=== PATIENT | male | born 1950 | race Caucasian/White ===

== ENCOUNTER 2023-06-25 10:04 | Outpatient (AMB) | payer MEDICARE, MEDICAID, SELFPAY ==
--- NOTE | 2023-06-25 10:07 | MHC.PC.OV ---
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 He resides at [facility]. He presents today with complaints of not wanting to eat, not wanting to speak, and active SI. Is been reported that the patient has been isolative to his room, increased incidence of urinary incontinence, and unwilling to shower or bathe. He has a past medical history significant for bipolar disorder, depression, hypothyroidism, weight loss, and coronary artery disease. It is reported the patient is taking his medications at the facility. Patient is declining labs or urine sample. He is reluctant to engage in the physical exam. He does state that he has active suicidal ideation, he states does not want to live anymore. After lengthy discussion with the in office mental health liaison the patient has agreed to transfer to the local hospital for more in-depth workup. [facility] Social History Housing: Other Patient Tobacco Use Status: Never used Tobacco e-Cigarette/Vaping Use: Never Used Current occupational status: disabled Cognitive needs: No Hearing needs: No Vision needs: No Questionnaire PHQ-9 Over the last 2 weeks, how often have you been bothered by any of the following problems? 1. Little interest or pleasure in doing things: not at all 2. Feeling down, depressed, or hopeless: not at all 3. Trouble falling or staying asleep, or sleeping too much: more than half the days 4. Feeling tired or having little energy: several days 5. Poor appetite or overeating: more than half the days 6. Feeling bad about yourself - or that you are a failure or have let yourself or your family down: not at all 7. Trouble concentrating on things, such as reading the newspaper or watching television: not at all 8. Moving or speaking so slowly that other people could have noticed. Or the opposite - being so fidgety or restless that you have been moving around a lot more than usual: not at all 9. Thoughts that you would be better off or of hurting yourself in some way: not at all Total score: 5 Source: Developed by Drs. John Quijano, Kathy Floyd, Vic Thurston and colleagues, with an educational anni from [employer]. Thrive Questionnaire Date Thrive assessed: 06/25/23 I am a: Parent/Caregiver What is your living situation today?: I have a steady place to live Within the past 12 months, did the food you bought not last and you didn't have the money to get more?: Never true Within the past 12 months, did you worry whether your food would run out before you got money to buy more?: Never true Do you have trouble paying for medicines?: No Do you have trouble getting transportation to medical appointments?: No Do you have trouble paying your heating and electricity bill?: No Do you have trouble taking care of your child, family member or friend?: No Do you have trouble with day-to-day activities such as bathing, preparing meals, shopping, managing finances, etc.?: No Are you currently unemployed and looking for a job?: No Are you interested in more education?: No AUDIT C Alcohol Use Questionnaire (AUDIT-C) 1. How often do you have a drink containing alcohol?: Never Total Score: 0 ALLISON-7 AMB Questionnaire ALLISON-7 Date ALLISON - 7 assessed: 06/25/23 Feeling nervous, anxious, or on edge: 1 = Several days Not being able to stop or control worryin = Not at all Worrying too much about different things: 0 = Not at all Trouble relaxin = More than half the days Being so restless that it is hard to sit still: 2 = More than half the days Becoming easily annoyed or irritable: 2 = More than half the days Feeling afraid as if something awful might happen: 1 = Several days Total ALLISON-7 score (0-4 normal; 5-9 mild; 10-14 moderate; 15-21 severe): 8 Source: Developed by DrsMay Quijano, Kathy Floyd, Vic Thurston and colleagues, with an educational anni from [employer]. Review of Systems Const Details: Patient is reluctant to answer questions. He states that he does not want to live anymore, he does want to eat anymore, and that he does not want to live anymore. Physical exam (Primary Care) Vital Signs: Last Vital Signs Pulse 73 06/25/23 10:10 BP 100/60 06/25/23 10:10 Pulse Ox 100 06/25/23 10:10 Oxygen Delivery Method Room Air 06/25/23 10:10 BMI result Body Mass Index 16.4 Tobacco/Smoking Status: Tobacco use Status Tobacco use date assessed 06/25/23 06/25/23 10:21 Patient Tobacco Use Status Never used Tobacco 06/25/23 10:21 e-Cigarette/Vaping Use Never Used 06/25/23 10:21 Const Other: Patient is declined physical exam. Assessment and Plan Assessment & Plan (1) Failure to thrive in adult: Comment: Due to patient's increased isolation, increased urinary incontinence, unwillingness to provide lab, or participate physical exam, in addition to active suicidal ideation, patient will be transported to a local hospital. He is agreeable to this plan. Code(s): R62.7 - Adult failure to thrive Coding Level of Care Code New Pt Level 4 (36571) Diagnoses Failure to thrive in adult R62.7 Time Spent (min) 30
[2023-06-25 10:10] VITALS: BP 100/60; PULSE 73; O2SAT 100; BMI 16.4
== END 2023-06-25 11:35 | disposition home or self-care (01) ==
PROVIDERS: PCP Nurse Practitioner Family; Visit Provider Nurse Practitioner Primary Care
DX: R62.7 Adult failure to thrive (principal)
CPT/HCPCS: 99204

== ENCOUNTER → 2023-08-25 23:59 | Outpatient (BNV) | payer MEDICARE, MEDICAID, SELFPAY | PROVIDERS: PCP Nurse Practitioner Primary Care; Visit Provider Internal Medicine | DX: F25.1 Schizoaffective disorder, depressive type (principal); F06.1 Catatonic disorder due to known physiological condition | CPT/HCPCS: G0180 ==

== ENCOUNTER 2023-08-26 10:55 | Outpatient (AMB) | payer MEDICARE, MEDICAID, SELFPAY ==
[2023-08-26 11:11] VITALS: BP 102/60; PULSE 98; O2SAT 99; BMI 22.6
--- NOTE | 2023-08-26 11:11 | MHC.PC.OV ---
Vital Signs 08/26/23 11:11 Height 5 ft 7 in Weight 144 lb 4 oz BMI 22.6 BP 102/60 Blood Pressure Location Rt brachial Position Sitting Pulse 98 Pulse Source Pulse Oximeter Pulse Oximetry (%) 99 Oxygen Delivery Method Room Air Intake Visit Reasons: HDF [facility] Failure to thrive Allergies No Known Allergies Allergy (Verified 08/26/23 11:22) Medication List - Last Reconciled 08/26/23 by MARIMAR Strauss acetaminophen 325 mg PO QID PRN alum-mag hydroxide-simeth 200-200-20 mg/5 mL (Antacid) 10 mL PO QID PRN ammonium lactate 12% 1 appl topical BID ascorbic acid (vitamin C) 250 mg PO DAILY benztropine 0.5 mg PO BID bisacodyl 10 mg MS DAILY PRN carbamazepine 100 mg PO TID cyanocobalamin (vitamin B-12) (Vitamin B-12) 100 mcg PO DAILY ferrous sulfate 325 mg PO DAILY folic acid 1 mg PO DAILY gabapentin 100 mg PO BID levothyroxine 25 mcg PO DAILY lorazepam 0.5 mg PO BID PRN magnesium hydroxide ([place] Milk of Magnesia) 400 mg PO DAILY PRN multivitamin 1 tab PO DAILY mupirocin 2% 1 appl topical BID paroxetine HCl 20 mg PO DAILY risperidone 1 mg PO BID sennosides-docusate sodium 8.6-50 mg (Senna Plus) 1 tab-cap PO BEDTIME simethicone 80 mg PO BID-QID PRN thiamine HCl (vitamin B1) 100 mg PO DAILY trazodone 50 mg PO BEDTIME PRN white petrolatum 51.1% (Balmex (petrolatum)) 1 appl topical BID Tobacco use date assessed: 08/26/23 Fall risk assessment: No Falls in past year Last assessed Fall Risk: 08/26/23 Dental Screening Dental Screen Date: 08/26/23 Did you have a dental visit in the last 12 months?: No Did you have a dental problem in the last 6 months where you did not have access to dental care?: No Was dental information given to patient?: No HPI HPI Comments History of Present Illness Details Patient is a 73-year-old male in today for a follow-up from hospital discharge. He was seen at [facility] 3 weeks ago for suicidal ideation and failure to thrive. He was stabilized, given medication adjustment, and sent back to his living facility at [facility] with VNA. He has a past medical history significant for dyslipidemia, hypothyroidism, BPH, urinary incontinence, restless legs syndrome, tremor, schizoaffective disorder, depression, and sialorrhea. While at [facility] the patient had is Seroquel discontinued, was given lorazepam 0.5 p.r.n. carbamazepine increased to 300mg PO daily, and added cogentin 0.5 PO BID. Patient states that he does not have any suicidal ideation. He feels much better now than before he went to the hospital, he feels like the new medication adjustments have been working well. He has a primary concern thickened yellow nails on his feet bilaterally. Denies using any medication. Denies any pain or trauma to the area. Patient states he has history of fungal infection of his nail bed in the past. Patient states he is up-to-date on his immunizations. Will try to obtain records on previous colonoscopy. Will collect blood work today [facility] Medical History (Updated 08/26/23 @ 12:13 by MARIMAR Strauss) Dyslipidemia Schizoaffective disorder Hypothyroidism BPH (benign prostatic hyperplasia) Restless leg syndrome Tremor Bipolar disorder Social History Housing: Other Housing Other:: [facility]. Patient Tobacco Use Status: Never used Tobacco e-Cigarette/Vaping Use: Never Used Current occupational status: disabled Cognitive needs: No Hearing needs: No Vision needs: No Questionnaire Thrive Questionnaire Date Thrive assessed: 06/25/23 ALLISON-7 AMB Questionnaire ALLISON-7 Date ALLISON - 7 assessed: 06/25/23 Source: Developed by Drs. John Quijano, Kathy Floyd, Vic Thurston and colleagues, with an educational anni from [employer]. Review of Systems Const Details: Constitutional : No Weight loss, No Fever, No Chills, No Fatigue, No Malaise ENT/Mouth : No sore throat, No Rhinorrhea Eyes: No Eye Pain, No Swelling, No Redness Cardiovascular : No Chest Pain, No SOB, No Dyspnea on Exertion, No Orthopnea, No Edema, No Palpitations Respiratory : No Cough, No Sputum, No Wheezing Gastrointestinal : No Nausea, No Vomiting, No Diarrhea, No Constipation, No abdominal Pain, No Hematochezia, No Melena Genitourinary : No Dysuria, No Urinary Frequency, No Hematuria, Musculoskeletal : No joint pain, No Myalgias, No Joint Swelling Skin : Admits thick yellow toenails. Neuro : No Weakness, No Numbness, No Dizziness, No Headache Psych : No Anxiety/Panic, No Depression. Denies SI/HI. Heme/Lymph: No Bruising, No Bleeding,No Lymphadenopathy Endocrine : No Polyuria, No Polydipsia All other systems reviewed and are negative Physical exam (Primary Care) Care Plan Goal for BP management: Vital signs have been reviewed and are stable. Tobacco/Smoking Status: Tobacco use Status Tobacco use date assessed 06/25/23 06/25/23 10:21 Patient Tobacco Use Status Never used Tobacco 06/25/23 10:21 e-Cigarette/Vaping Use Never Used 06/25/23 10:21 Thrive Assessment: Date of Thrive Assessment Date Thrive assessed 06/25/23 06/25/23 11:27 Const Other: Appearance: Alert.? Oriented X3.? No acute distress.? Neck: Normal inspection.? Neck supple.? CVS: Normal heart rate and rhythm.? Pulses normal.? Respiratory: No respiratory distress.? Breath sounds normal.? Skin: Skin warm and dry.? Toenails yellow and thickened on all toes of bilateral feet. Neuro: Oriented X 3.? No motor deficit.? No sensory deficit. CN 2-12 intact Assessment and Plan Assessment & Plan (1) Onychomycosis: Comment: Will refer to podiatry. Code(s): B35.1 - Tinea unguium Plan: Patient will follow-up physical in 5 months. Patient will get blood draw after this appointment. Plan Take your medications as prescribed. If you were prescribed antibiotics today, it is important that you take your medication to their entirety, do not skip any doses, do not finish them early. Follow-up with your primary care provider this week. Return to the emergency department with new or worsening symptoms. Such as fevers, chills, chest pain, shortness of breath, nausea, vomiting, dizziness, headache, vision changes, lethargy In case of emergency call 911 Orders: Orders PSA,Total (Free>4and<10) Today Z12.5 - Encounter for screening for malignant neoplasm of prostate UA CC w/rflx Micro + Cult Today E86.0 - Dehydration Comprehensive Met. Panel Today Z91.89 - Other specified personal risk factors, not elsewhere classified Complete Blood Count Auto Diff Today Z13.0 - Encounter for screening for diseases of the blood and blood-forming organs and certain disorders involving the immune mechanism TSH reflex Free T4 Today Z13.29 - Encounter for screening for other suspected endocrine disorder Vitamin D 25-OH (D2 and D3) Today Z13.21 - Encounter for screening for nutritional disorder Coding Level of Care Code Est Pt Level 3 (80614) Diagnoses Onychomycosis B35.1 Time Spent (min) 45
== END 2023-08-26 15:41 | disposition home or self-care (01) ==
PROVIDERS: PCP Nurse Practitioner Primary Care; Visit Provider Nurse Practitioner Primary Care
DX: B35.1 Tinea unguium (principal)
CPT/HCPCS: 99213

== ENCOUNTER 2023-08-26 11:47 | Outpatient (REF) | payer MEDICARE, MEDICAID, SELFPAY ==
[2023-08-26 13:12] LABS: MANUAL DIFF FLAG NO
[2023-08-26 13:24] LABS: Basophils Percent Auto 0.5 % (0-2); Eosinophils Absolute Auto 0.4 X10*3/uL (0.0-0.4); Hematocrit 42.1 % (42.0-52.0); Hemoglobin 13.3 g/dl (14.0-18.0); Imm Gran Abs Auto 0.04 X10*3/uL (0.00-0.03); Imm Gran Pct Auto 0.5 % (0.0-0.4); Lymphocytes Absolute Auto 1.6 X10*3/uL (1.2-4.9); Lymphocytes Percent Auto 18.9 % (20-40); Mean Corpuscular HGB Conc 31.6 g/dl (31.0-36.0); Mean Corpuscular Hemoglobin 31.1 pg (27.0-33.0); Mean Corpuscular Volume 98.6 fL (80.0-98.0); Mean Platelet Volume 10.2 fL (9.4-12.4); Monocytes Absolute Auto 0.5 X10*3/uL (0.1-1.2); Monocytes Percent Auto 5.9 % (2-11); Neutrophils Percent Auto 69.2 % (45-73); Platelet Count 343 X10*3/uL (160-400); Red Blood Count 4.27 X10*6/uL (4.60-5.80); Red Cell Distribution Width 13.4 % (11.0-16.0); White Blood Count 8.7 X10*3/uL (4.8-10.8)
[2023-08-26 13:39] LABS: Appearance Urine Clear; Color Urine Dark Yellow; Glucose Urine UA Negative (Negative); Leukocyte Esterase Urine Negative (Negative); Nitrite Urine Negative (Negative); PH 5.5 (5.0-9.0); Specific Gravity - Urine 1.025 (1.005-1.025); UMIC TRIGGER UACC YES; Urine Blood Negative (Negative); Urine Ketones Trace mg/dL (Negative); Urine Protein 30 (1+) mg/dL (Neg-Trace)
[2023-08-26 13:55] LABS: PSA,Total (Free>4and<10) 4.84 ng/mL (0.00-4.00)
[2023-08-26 14:00] LABS: Alanine Aminotransferase 10 U/L (0-40); Albumin Level 3.9 g/dL (3.5-5.0); Alkaline Phosphatase 85 U/L (39-117); Anion Gap 10 (12-20); Aspartate Amino Transferase 12 U/L (5-37); Bilirubin Total 0.2 mg/dL (0.0-1.0); Blood Urea Nitrogen 17 mg/dL (9-16); Calcium 9.7 mg/dL (8.4-10.2); Carbon Dioxide 30 mmol/L (22-29); Chloride 104 mmol/L (96-108); Estimated Glomerular Filt Rate > 60; Glucose Random 94 mg/dL (60-115); Potassium 3.9 mmol/L (3.3-5.1); Sodium 140 mmol/L (135-145); TSH reflex Free T4 1.93 uIU/mL (0.32-4.0); Total Protein 7.1 g/dL (6.5-8.0)
[2023-08-26 14:07] LABS: Bacteria Urine None Seen (None Seen); Hyaline Casts Urine 0-2 /LPF (0-2); RBC Urine 0-2 /HPF (0-2); Squamous Epithelial Cell Urine 0-2 /HPF (0-2); WBC Urine 0-5 /HPF (0-5)
[2023-08-27 12:43] LABS: Free Prostate Spec Ag 0.9 ng/mL; Percent Free Prostate Spec Ag 20 % (calc) (>25); Prostate Specific Ag Total 4.5 ng/mL (< OR = 4.0)
[2023-08-30 17:23] LABS: Vitamin D 25-OH, D2 <4 ng/mL; Vitamin D 25-OH, D3 31 ng/mL; Vitamin D 25-OH, Total 31 ng/mL (30-100)
== END 2023-08-26 11:48 | disposition home or self-care (01) ==
LOC: HO.HMGCLDS 11:47
PROVIDERS: PCP Nurse Practitioner Primary Care; Visit Provider Nurse Practitioner Primary Care
DX: Z13.0 Encounter for screening for diseases of the blood and blood-forming organs and certain disorders involving the immune mechanism (principal); Z13.21 Encounter for screening for nutritional disorder; Z12.5 Encounter for screening for malignant neoplasm of prostate; Z91.89 Other specified personal risk factors, not elsewhere classified; Z13.29 Encounter for screening for other suspected endocrine disorder
CPT/HCPCS: 36415; 80053; 81001; 82306; 84153; 84154; 84443; 85025

== ENCOUNTER 2023-10-15 09:51 | Outpatient (AMB) | payer MEDICARE, MEDICAID, SELFPAY ==
--- NOTE | 2023-10-15 10:32 | A.OFFVIS_ITS ---
Intake Intake Visit Reasons: Elevated prostate specific antigen [PSA] Intake Note: NEW Patient presents today to established treatment for Elevated PSA: Meds- None Allergies to Antibiotic- No Known Allergies Blood Thinner- None PVR- 37 mL Licensed Loan Officer Assistant Required: No Accompanied by: Self / Same As Patient Allergies No Known Allergies Allergy (Verified 10/15/23 10:34) Medication List - Last Reconciled 10/15/23 by Lindsey Mallory MD acetaminophen 325 mg PO QID PRN alum-mag hydroxide-simeth 200-200-20 mg/5 mL (Antacid) 10 mL PO QID PRN ammonium lactate 12% 1 appl topical BID ascorbic acid (vitamin C) 250 mg PO DAILY benztropine 0.5 mg PO BID bisacodyl 10 mg [place] DAILY PRN carbamazepine 100 mg PO TID cyanocobalamin (vitamin B-12) (Vitamin B-12) 100 mcg PO DAILY ferrous sulfate 325 mg PO DAILY finasteride (Proscar) 5 mg PO DAILY 90 days folic acid 1 mg PO DAILY gabapentin 100 mg PO BID levothyroxine 25 mcg PO DAILY levothyroxine 25 mcg PO DAILY lorazepam 0.5 mg PO BID PRN magnesium hydroxide ([place] Milk of Magnesia) 400 mg PO DAILY PRN multivitamin 1 tab PO DAILY mupirocin 2% 1 appl topical BID paroxetine HCl 20 mg PO DAILY risperidone 1 mg PO BID sennosides-docusate sodium 8.6-50 mg (Senna Plus) 1 tab-cap PO BEDTIME simethicone 80 mg PO BID-QID PRN tamsulosin (Flomax) 0.4 mg PO BEDTIME thiamine HCl (vitamin B1) 100 mg PO DAILY trazodone 50 mg PO BEDTIME PRN white petrolatum 51.1% (Balmex (petrolatum)) 1 appl topical BID HPI HPI Comments History of Present Illness Details Christiano is a 73-year-old male with history of schizophrenia disorder, bipolar disorder, history of failure to thrive history of suicide ideation-he was admitted to [facility] in July of this year 2023 for suicide ideation. History of BPH referred for evaluation due to elevated PSA. PSA - 08/26/23--4.84 Examination-prostate is smooth enlarged. Urinalysis negative leukocytes negative blood, the patient voided 200 mL bladder scan PVR 37 mL Plan Proscar 5 mg daily, tamsulosin 0.4 mg at bedtime Repeat PSA 4 months PFS Medical History Dyslipidemia Schizoaffective disorder Hypothyroidism BPH (benign prostatic hyperplasia) Restless leg syndrome Tremor Bipolar disorder Social History Housing: Other Housing Other:: [facility]. Patient Tobacco Use Status: Never used Tobacco e-Cigarette/Vaping Use: Never Used Current occupational status: disabled Cognitive needs: No Hearing needs: No Vision needs: No Review of Systems Const All systems reviewed & are unremarkable except as noted in HPI and below Reports no additional complaints Eyes Reports no additional complaints ENT Reports no additional complaints Card Reports no additional complaints Resp Reports no additional complaints GI Reports no additional complaints Musc Reports no additional complaints Neuro Reports no additional complaints Psych Reports no additional complaints Endo Reports no additional complaints Manav/Lymph Reports no additional complaints Aller/Immun Reports no additional complaints Physical Exam Const General: no acute distress, well developed and well groomed Nutritional Appearance: thin Orientation/consciousness: patient oriented x3 HEENT Head: Yes normocephalic and Yes atraumatic Eyes Conjunctivae: conjunctivae normal Neck Neck: Yes normal visual inspection Chest Chest palpation & inspection: normal inspection of the chest Resp Effort & Inspection: normal respiratory effort Cardio Rate: regular rate GI Inspection: Yes normal to inspection Palpation (GI): Soft to palpation Other: Prostate Exam: Smooth enlarged Penis: normal penis Scrotum: scrotum normal Skin General skin exam: petechiae Rashes: rashes noted (neck and scalp) Neuro General: patient oriented x3 Extrem General: No pedal edema Psych Appearance: grossly normal Affect: normal affect Office Procedures Post Void Residual Post Residual Void Post Void Residual (PVR): 37 [id number] Void Residual by ultrasound Results AMB Urinalysis, Automated UA Leukoctes 0 Joy/uL Last Edit by CHAO Johns on 10/15/23 11:59 UA Nitrite Negative Last Edit by Tova Moreno Sirena on 10/15/23 11:59 UA Urobilinogen 0.2 mg/dL Last Edit by Tova Moreno A on 10/15/23 11:5 9 UA Protein 0 mg/dL Last Edit by Tova Moreno Sirena on 10/15/23 11:59 UA pH 6.0 Last Edit by Tova Moreno A on 10/15/23 11:59 UA Blood 0 Mike/uL Last Edit by Tova Moreno A on 10/15/23 11:59 UA Specific [place] 1.010 Last Edit by CHAO Johns on 10/15/23 11: 59 UA Ketone Negative Last Edit by Tova Moreno Sirena on 10/15/23 11:59 UA Bilirubin 0 mg/dL Last Edit by Tova Moreno Sirena on 10/15/23 11:59 UA Glucose 0 mg/dL Last Edit by Tova Moreno Sirena on 10/15/23 11:59 Results Reviewed Results Reviewed: Laboratory Last Values Urine pH (Auto) 6.0 10/15/23 11:55 Specific [place] (Auto) 1.010 10/15/23 11:55 Urine Protein (Auto) 0 mg/dL 10/15/23 11:55 Glucose (UA)(Auto) 0 mg/dL 10/15/23 11:55 Urine Ketones (Auto) Negative 10/15/23 11:55 Urine Blood (Auto) 0 Mike/uL 10/15/23 11:55 Urine Nitrite (Auto) Negative 10/15/23 11:55 Urine Bilirubin (Auto) 0 mg/dL 10/15/23 11:55 Urine Urobilinogen (Auto) 0.2 mg/dL 10/15/23 11:55 Leukocyte Esterase (Auto) 0 Joy/uL 10/15/23 11:55 Assessment & Plan Assessment & Plan (1) BPH loc w urin obs/LUTS: Code(s): N40.1 - Benign prostatic hyperplasia with lower urinary tract symptoms (2) Elevated PSA: Code(s): R97.20 - Elevated prostate specific antigen [PSA] Plan Proscar 5 mg daily, tamsulosin 0.4 mg at bedtime Renal ultrasound, Repeat PSA 4 months Orders: Orders AMB Urinalysis Automated 10/15/23 Z13.9 - Encounter for screening, unspecified US renal BI 10/15/23 N40.1 - Benign prostatic hyperplasia with lower urinary tract symptoms AMB Post Void Residual by ultrasound 10/15/23 N39.8 - Other specified disorders of urinary system Medications: New finasteride (Proscar) 5 mg PO DAILY 90 tabs 3RF 90 days C61 - Malignant neoplasm of prostate tamsulosin (Flomax) 0.4 mg PO BEDTIME 90 caps 3RF Patient Instructions: It is a privilege to be allowed the opportunity to participate in the urologic care of your patient. If you have any questions or concerns regarding treatment for the above conditions please do not hesitate to contact me. The office telephone contact is [phone]. This note is constructed in part using voice recognition software. While every effort has been made to ensure accuracy lock and dam operator errors may have been included. Yours sincerely, Lindsey Mallory MD Coding Level of Care Code New Pt Level 3 (29685) Diagnoses BPH loc w urin obs/LUTS N40.1 Elevated PSA R97.20 CPT Codes Post Residual Void - PVR CPT Code: 58842-[id number] Void Residual by ultrasound ([id number])
== END 2023-10-15 11:29 | disposition home or self-care (01) ==
PROVIDERS: PCP Nurse Practitioner Primary Care; Visit Provider Urology
DX: N40.1 Benign prostatic hyperplasia with lower urinary tract symptoms (principal); R97.20 Elevated prostate specific antigen [PSA]
CPT/HCPCS: 99203

== ENCOUNTER → 2023-10-15 09:51 | Outpatient (BNVA) | payer MEDICARE, MEDICAID, SELFPAY | PROVIDERS: PCP Nurse Practitioner Primary Care; Visit Provider Urology | DX: N40.1 Benign prostatic hyperplasia with lower urinary tract symptoms (principal); R97.20 Elevated prostate specific antigen [PSA]; N39.8 Other specified disorders of urinary system; C61 Malignant neoplasm of prostate; F25.9 Schizoaffective disorder, unspecified; F31.9 Bipolar disorder, unspecified | CPT/HCPCS: 51798; 81003; 99202 ==